=== PATIENT | male | born 1970 | race Caucasian/White ===

== ENCOUNTER → 2023-06-05 | Outpatient (CLI) | payer OTHER, SELFPAY ==
[2023-06-05 12:20] LABS: Hematocrit 46.3 % (40-54); Hemoglobin 15.2 g/dL (13.0-16.5); Mean Corp Hgb Conc 32.8 g/dL (32-36); Mean Corpuscular Hgb 30.6 pg (27.0-32.0); Mean Corpuscular Volume 93.3 fL (80-94); Mean Platelet Vol. 10.1 fl (6.2-12.0); Platelet Count 263 K/mm3 (150-450); RBC Distribution Width CV 13.2 % (11.6-14.6); Red Blood Count 4.96 M/mm3 (4.6-6.2); White Blood Count 4.6 K/mm3 (4.4-11.0)
[2023-06-05 13:19] LABS: Vitamin D,25 Hydroxy 29.7 ng/mL
[2023-06-05 13:58] LABS: ALB/GLOB Ratio 1.1 RATIO (0.9-2.4); AST(SGOT) 11 U/L (15-37); Alanine Aminotransfer ALT/SGPT 29 U/L (16-61); Albumin, Serum 3.8 g/dL (3.2-5.0); Alkaline Phosphatase 60 U/L (45-117); Anion Gap 4 (5-15); BUN 18 mg/dL (7-18); BUN/Creat Ratio 15.4 RATIO (10-20); Calcium,Total 8.7 mg/dL (8.5-10.1); Chloride 107 mmol/L (98-107); Creatinine, Serum 1.17 mg/dL (0.70-1.30); EST Glomerular Filtration Rate 69 mL/min (>60); Est Glom Filt Rate - Afr Amer 84 mL/min (>60); Globulin 3.4 g/dL (2.2-4.2); Glucose 120 mg/dL (74-106); Potassium 4.1 mmol/L (3.5-5.1); Protein, Total 7.2 g/dL (6.4-8.2); Sodium Level 139 mmol/L (136-145); T4 Free Direct 0.94 ng/dL (0.76-1.46); Thyroid Stim Hormone (TSH) 2.21 uIU/mL (0.358-3.74)
== END | disposition home or self-care (01) ==
LOC: BIMLAB 09:50
PROVIDERS: PCP Student in an Organized Health Care Education/Training Program; Referring Provider Student in an Organized Health Care Education/Training Program; Visit Provider Student in an Organized Health Care Education/Training Program
DX: R53.83 Other fatigue (principal); E03.9 Hypothyroidism, unspecified; E55.9 Vitamin D deficiency, unspecified
CPT/HCPCS: 36415; 80053; 82306; 84439; 84443; 85027

== ENCOUNTER → 2023-11-14 | Outpatient (CLI) | payer OTHER, SELFPAY ==
[2023-11-14 15:56] LABS: Vitamin D,25 Hydroxy 30.7 ng/mL
[2023-11-14 15:59] LABS: Hemoglobin A1c 5.2 % (3.8-5.6)
[2023-11-14 16:09] LABS: Hematocrit 45.6 % (40-54); Hemoglobin 15.4 g/dL (13.0-16.5); Mean Corp Hgb Conc 33.8 g/dL (32-36); Mean Corpuscular Hgb 31.4 pg (27.0-32.0); Mean Corpuscular Volume 92.9 fL (80-94); Mean Platelet Vol. 9.8 fl (6.2-12.0); Platelet Count 256 K/mm3 (150-450); RBC Distribution Width CV 12.8 % (11.6-14.6); RBC Distribution Width SD 43.7 fl (35.1-43.9); Red Blood Count 4.91 M/mm3 (4.6-6.2); White Blood Count 4.7 K/mm3 (4.4-11.0)
[2023-11-14 16:10] LABS: ALB/GLOB Ratio 1.1 RATIO (0.9-2.4); AST(SGOT) 23 U/L (15-37); Alanine Aminotransfer ALT/SGPT 41 U/L (16-61); Albumin, Serum 3.8 g/dL (3.2-5.0); Alkaline Phosphatase 62 U/L (45-117); Anion Gap 5 (5-15); BUN 18 mg/dL (7-18); BUN/Creat Ratio 14.9 RATIO (10-20); Calcium,Total 9.1 mg/dL (8.5-10.1); Chloride 108 mmol/L (98-107); Cholesterol 192 mg/dL (200); Creatinine, Serum 1.21 mg/dL (0.70-1.30); EST Glomerular Filtration Rate 67 mL/min (>60); Est Glom Filt Rate - Afr Amer 81 mL/min (>60); Globulin 3.6 g/dL (2.2-4.2); Glucose 104 mg/dL (74-106); High Density Lipoprotein 31 mg/dL; PSA,Total - Annual Screen 0.76 ng/mL (0.00-4.00); Potassium 4.6 mmol/L (3.5-5.1); Protein, Total 7.4 g/dL (6.4-8.2); Sodium Level 140 mmol/L (136-145); T4 Free Direct 0.97 ng/dL (0.76-1.46); Thyroid Stim Hormone (TSH) 2.31 uIU/mL (0.358-3.74); Triglycerides 239 mg/dL; Very Low Density Lipoprotein 48 mg/dL (5-40)
== END | disposition home or self-care (01) ==
LOC: BIMLAB 11:49
PROVIDERS: PCP Student in an Organized Health Care Education/Training Program; Visit Provider Student in an Organized Health Care Education/Training Program
DX: E55.9 Vitamin D deficiency, unspecified (principal); Z13.6 Encounter for screening for cardiovascular disorders; E03.9 Hypothyroidism, unspecified; Z12.5 Encounter for screening for malignant neoplasm of prostate
CPT/HCPCS: 36415; 80053; 80061; 82306; 83036; 84153; 84439; 84443; 85027; G0103

== ENCOUNTER → 2024-02-23 | Outpatient (CLI) | payer OTHER, SELFPAY | END | disposition home or self-care (01) | LOC: LABSPEC 10:53 | PROVIDERS: PCP Student in an Organized Health Care Education/Training Program; Referring Provider Nurse Practitioner; Visit Provider Nurse Practitioner | DX: H01.003 Unspecified blepharitis right eye, unspecified eyelid (principal) | CPT/HCPCS: 87070; 87075; 87077; 87205 ==

== ENCOUNTER → 2024-07-15 | Outpatient (CLI) | payer OTHER, SELFPAY ==
[2024-07-15 12:07] LABS: Hematocrit 45.5 % (40-54); Hemoglobin 15.3 g/dL (13.0-16.5); Mean Corp Hgb Conc 33.6 g/dL (32-36); Mean Corpuscular Hgb 30.5 pg (27.0-32.0); Mean Corpuscular Volume 90.8 fL (80-94); Mean Platelet Vol. 10.1 fl (6.2-12.0); Platelet Count 249 K/mm3 (150-450); RBC Distribution Width CV 12.7 % (11.6-14.6); RBC Distribution Width SD 41.5 fl (35.1-43.9); Red Blood Count 5.01 M/mm3 (4.6-6.2); White Blood Count 5.9 K/mm3 (4.4-11.0)
[2024-07-15 12:55] LABS: ALB/GLOB Ratio 1.1 RATIO (0.9-2.4); AST(SGOT) 22 U/L (15-37); Alanine Aminotransfer ALT/SGPT 32 U/L (16-61); Albumin, Serum 3.7 g/dL (3.2-5.0); Alkaline Phosphatase 62 U/L (45-117); Anion Gap 4 (5-15); BUN 13 mg/dL (7-18); BUN/Creat Ratio 11.7 RATIO (10-20); Calcium,Total 8.7 mg/dL (8.5-10.1); Chloride 108 mmol/L (98-107); Creatinine, Serum 1.11 mg/dL (0.70-1.30); EST Glomerular Filtration Rate 73 mL/min (>60); Est Glom Filt Rate - Afr Amer 89 mL/min (>60); Globulin 3.5 g/dL (2.2-4.2); Glucose 117 mg/dL (74-106); Potassium 4.3 mmol/L (3.5-5.1); Protein, Total 7.2 g/dL (6.4-8.2); Sodium Level 140 mmol/L (136-145)
== END | disposition home or self-care (01) ==
LOC: BIMLAB 09:25
PROVIDERS: PCP Student in an Organized Health Care Education/Training Program; Referring Provider Nurse Practitioner Primary Care; Visit Provider Nurse Practitioner Primary Care
DX: Z01.818 Encounter for other preprocedural examination (principal)
CPT/HCPCS: 36415; 80053; 85027

== ENCOUNTER 2024-07-30 08:05 | Day surgery (SDC) | payer OTHER, SELFPAY ==
[2024-07-30] VITALS (9 sets, daily range): BP systolic 120–134; BP diastolic 89–95; PULSE 62–75; RESP 16–20; TEMP 36.4–36.6; O2SAT 94–99; BMI 31.9
--- NOTE | 2024-07-30 | MASS_PTH ---
PATIENT: NICHOLE MARRERO LOC: [facility] [place] U#:[id number] AGE/SX: 53/M ROOM: RE07/30/[address]: Dr. Isamar Grajeda MD : 1970 BED: DIS: 07/30/2024 SPEC #: [id number] RECD: 07/30/24 13:06 STATUS: LB REBimal #: [id number] VERO: 07/30/24 00:[address]: Isamar Grajeda DEPT: SURGICAL PATHOLOGY RECD BY: Chaitanya Leary ENTERED: 07/30/24 13:06 SP TYPE: Mass OTHR DR: Dr. Lucio Conte, DO Tissues: Arm, NOS Procedures: Surgery Specimen Level IV HEADER OPERATION: Excision subcutaneous mass left upper arm PRE-OP DIAGNOSIS: Neoplasm of uncertain behavior of connective and other soft tissue TISSUE SUBMITTED: Left upper arm mass MICROSCOPIC DIAGNOSIS Left upper arm mass, excision: Inflamed trichilemmal cyst with focal calcification. Detached pieces of mature adipose tissue, no pathologic diagnosis. 08/02/24 MICROSCOPIC DESCRIPTION Slides are reviewed. GROSS DESCRIPTION Received in fixative is one container labeled with the patient's name and designated Left upper arm mass. The specimen consists of a piece of skin with underlying tissue. Skin piece measures 2.2 x 1.0 x 1.5cm. The underlying tissue piece measures 1.5 x 1.5 x 1.5cm. It is inked and serially sectioned reveal a cyst filled with douglass-yellow sebum like material. Also present in the container are multiple fragments of yellow adipose tissue measuring in aggregate 2.5 x 2.0 x 0.3cm. Chemical Compounder Helper sections are submitted in two cassettes as follows: 1- detached fragment of adipose tissue, entirely submitted, 2- skin with underlying tissue. 07/30/2024 TC:5 CPT:72751
--- NOTE | 2024-07-30 08:45 | PCM.HP.BLA ---
History and Physical Date of Admission: 07/30/24 The patient is examined and there are no changes to the H&P dated 07/14/2024. He presents for excision of a subcutaneous mass of the left upper arm. Informed consent was obtained. He is marked in the preop holding area prior to surgery. Assessment & Plan Assessment/Plan (1) Neoplasm of uncertain behavior of connective and other soft tissue: PLAN: Plan For excision subcutaneous mass left upper arm
[2024-07-30] MEDS: 0.9% Normal Saline (1000mL) 1,000 ML 15 ML IV (08:52)
--- NOTE | 2024-07-30 09:04 | PCM.PRE.AN2 ---
ASA Classification* ASA Classification ASA Classification: 2 Assessment & Plan Anesthesia* Anesthesia Assessment Anesthesia Assessment: Discussed sedation and/or anesthesia options, risks, benefits, and alternatives with patient/parents/legal guardian/POA. Questions invited. The patient/parents/legal guardian/POA seems to understand and agrees to proceed with anesthesia plan. Reviewed the physical assessment, medical history, allergy history and patient home medications list prior to surgery/procedure/anesthetic and documented any changes. Performed airway and anesthesia risk assessments. Anesthesia Type Anesthesia Type: General Anesthesia Focused Assessment* Temperature: 97.5 F Pulse Rate: 62 Blood Pressure: 132/92 Respiratory Rate: 20 Pulse Ox: 97 Airway Assessment Mouth opens: >3 cm Mallampati Score: II Focused Labs Anesthesia Preop lab: CBC WBC 5.9 K/mm3 (4.4-11.0) 07/15/24 09:30 RBC 5.01 M/mm3 (4.6-6.2) 07/15/24 09:30 Hgb 15.3 g/dL (13.0-16.5) 07/15/24 09:30 Hct 45.5 % (40-54) 07/15/24 09:30 Plt Count 249 K/mm3 (150-450) 07/15/24 09:30 CHEMISTRY Potassium 4.3 mmol/L (3.5-5.1) 07/15/24 09:30 Sodium 140 mmol/L (136-145) 07/15/24 09:30 BUN 13 mg/dL (7-18) 07/15/24 09:30 Creatinine 1.11 mg/dL (0.70-1.30) 07/15/24 09:30 Glucose 117 mg/dL (74-106) H 07/15/24 09:30 TSH 2.31 uIU/mL (0.358-3.74) 11/14/23 11:55 COAG Pre-Assessment Diagnosis/Proposed Procedure Planned Operative Procedure(s): (L) Excision subcutaneous mass left upper arm Anesthesia History Anesthesia History - television repairer: Anesthesia History - television repairer Hx Hospitalization No 07/21/24 10:16 Any Problems With Anesthesia Yes: PT STATES HARD TO 07/21/24 10:16 SEDATE - WAKES UP DURING PROCEDURES Cholinesterase deficiency No 07/21/24 10:16 You/Your Family Experience No 07/21/24 10:16 fever (hyperthermia) with Relationship Recent Exposure to Contagious No 07/30/24 08:33 Disease Does patient have nerve No 07/21/24 10:16 stimulator Patient instructed to have device shut off --Does patient have Pacemaker No 07/30/24 08:33 or ICD? When Was Last Pacemaker Check QUESTION #4 FULL TEXT: You/Your Family Experience fever (hyperthermia) with Anesthesia Last Oral Intake Last Oral intake: Last Oral Intake NPO since 23:30 07/30/24 08:33 Meds taken in AM with sips of No 07/30/24 08:33 water? Meds patient instructed to take am of surgery PONV PONV - television repairer: PONV - television repairer Female No 07/21/24 10:16 HX of Motion Sickness No 07/21/24 10:16 HX of N/V After Surgery No 07/21/24 10:16 Non-Smoker Yes 07/21/24 10:16 Duration of Surgery greater No 07/21/24 10:16 than 60 minutes Number of Risk Factors 1 07/21/24 10:16 PONV Score Low Risk 07/21/24 10:16 Height & Weight Height & Weight: Anesthesia: Height & Weight Height 6 ft 4 in 07/30/24 08:33 Weight: 119.1 kg 07/30/24 08:33 Body Mass Index (BMI) 31.9 07/30/24 08:33 Respiratory Assessment Respiratory Assessment - television repairer: Respiratory Tract Infection Hx - television repairer Hx Respiratory Tract Infection Yes: 06/30/24 - COLD 07/21/24 10:16 STOP Sleep Apnea STOP Sleep Apnea - television repairer: STOP Sleep Apnea - television repairer Hx Hypertension No 07/21/24 10:16 Hx Sleep Apnea No 07/21/24 10:16 CPAP BIPAP Do you snore loudly (louder No 07/21/24 10:16 than talking or can be heard Do you often feel tired/ No 07/21/24 10:16 fatigued/ sleepy during daytime? Has anyone observed you stop No 07/21/24 10:16 breathing during sleep? STOP Results Negative 07/21/24 10:16 QUESTION #5 FULL TEXT : Do you snore loudly (louder than talking or can be heard through closed doors)? Tobacco Use History Tobacco Use History - television repairer: Tobacco Use History - television repairer Tobacco Use Smoking Status Never smoker 07/21/24 10:16 Hx Tobacco Use No 07/21/24 10:16 Years Smoking Packs Smoked per Day Smoking Cessation Date was within the last 15 years Hx Smoking Cessation Date Hx Smoking Cessation Counseling Hematologic Medial History Hematologic Hx - television repairer: Hematologic Medical Hx - insurance biller Hx of Blood Transfusion No 07/21/24 10:16 Hx of Transfusion in last 3 No 07/21/24 10:16 Months Date of Last Transfusion (if within last 3 months) Ever experience any problems No 07/21/24 10:16 with transfusion(s)? Specify any problems Hx of Preganancy in last 3 N/A 07/21/24 10:16 Months Nurse Filling Out Transfusion NBUCHER 07/21/24 10:16 & Questions: Date: 07/21/24 07/21/24 10:16 Time: 10:19 07/21/24 10:16 Patient unable to answer at this time (ie. confused, unrespo /Reproduction History /Reproductive History - television repairer: /Reproductive Hx- television repairer Hx Now No 07/21/24 10:16 Gestational Age (in weeks): EDC: Hx Hx Para Hx Section SAB No 07/21/24 10:16 Active Medications Active Medications: Current Medications Generic Name Dose Route Start Last Admin Trade Name Freq PRN Reason Stop Dose Admin Cefazolin Sodium 2 gm/ N/A 20 mls @ 400 mls/hr 07/30/24 09:30 IV 07/30/24 09:32 PREOP ONE Sodium Chloride 1,000 mls @ 15 mls/hr 07/30/24 08:25 07/30/24 08:52 IV 08/04/24 21:44 15 mls/hr .Q48H MICKEY Administration Protocol PFS Medical History Wears glasses Cancer Thyroid disease Arthritis Heartburn Gastric reflux Non-smoker History of melanoma History of skin cancer History of frequent headaches History of back problems History of environmental allergies Acute conjunctivitis, left eye GERD (gastroesophageal reflux disease) Hypothyroidism Home Medications ?Medication ?Instructions ?Recorded ?Last Taken ?Type docusate sodium 100 mg capsule 100 mg PO QDAY 11/14/23 07/29/24 History levothyroxine 50 mcg tablet 50 mcg PO QDAY 11/14/23 07/29/24 History pantoprazole 40 mg tablet,delayed 40 mg PO QDAY 11/14/23 07/29/24 History release tamsulosin 0.4 mg capsule 0.4 mg PO QDAY 11/14/23 07/29/24 History fluticasone propionate 50 1 spray intranasal DAILY PRN nasal 07/21/24 Unknown History mcg/actuation nasal congestion spray,suspension (24 Hour Allergy Relief) Allergy/AdvReac Type Severity Reaction Status Date / Time No Known Allergies Allergy Verified 07/30/24 08:33 Family History Father Angina at rest Diabetes Heart disease Hypertension High blood cholesterol Grandfather Angina at rest Heart disease Mother Blood clot in vein Sister Diabetes Cancer throat cancer Surgical History History of hand surgery History of shoulder surgery History of nasal surgery Social History Smoking Status: Never smoker alcohol intake: current substance use type: does not use additional social history: pt denies aspirin and denies ibuprofen use, denies vaping, denies marijuana use, denies edibles. Review of Systems (Anesthesia) ROS Narrative System reviewed and no additional complaints, except as documented.
[2024-07-30] MEDS: Cefazolin 2 GM in Syringe IV (09:25)
[2024-07-30] MEDS: Bupiv/Epi 0.25% 30 ML Vial (09:48)
--- NOTE | 2024-07-30 10:33 | EX.PCM.DISCH ---
Discharge Instructions Dressing / Incision Additional Dressing/Incision Instructions:: Keep your left arm elevated on pillows when sitting to reduce bruising and swelling. Try to reduce activity of the left arm. Leave the dressing in place until seen in the office. May shower over the dressing but do not scrub. Take the oral antibiotic (Keflex) 2 times a day until finished. Tylenol or ibuprofen as needed for pain. Follow Up Care Please Follow Up With: Isamar Grajeda MD When: In 1 week Test Results: Test results from this visit will be discussed in further detail at your follow-up appointment, if applicable. Discharge Plan Admission Attending Provider: Isamar Grajeda Primary Care Provider: Lucio Conte Instructions Print Language: Ugandan Discharge Orders/Prescriptions Prescriptions: New cephalexin 500 mg capsule 500 mg PO BID 7 Days Qty: 14 0RF No Action pantoprazole 40 mg tablet,delayed release (DR/EC) 40 mg PO QDAY levothyroxine 50 mcg tablet 50 mcg PO QDAY tamsulosin 0.4 mg capsule 0.4 mg PO QDAY docusate sodium 100 mg capsule 100 mg PO QDAY fluticasone propionate [24 Hour Allergy Relief] 50 mcg/actuation spray,suspension 1 spray intranasal DAILY PRN (Reason: nasal congestion) Rx Instructions: administer into each nostril Referrals / Follow Up: Lucio Conte DO [Primary Care Provider] - Disposition Disposition (needs filled in before D/C Order can be placed): Home, Self Care
--- NOTE | 2024-07-30 10:36 | PCM.OPRPT ---
Problems Associated Problem List Diagnoses (1) Neoplasm of uncertain behavior of connective and other soft tissue: Operative Report (Standard) Operative Information Date of Procedure: 07/30/24 Pre-Operative Diagnosis: Subcutaneous mass left upper arm Post-Operative Diagnosis: Same Surgery/Procedure Performed: Excision subcutaneous mass left upper arm (4.0 cm) candy bar attendant: Yes Tree Surgeon: Damir Buenrostro Tasks completed by religious assistant: Retracting Type of Anesthesia: General RN Documented Start/Stop Times: Operation Date: 07/30/24 09:30 Case Time Into Pre-Op 07/30/24 08:23 Anesthesia Start 07/30/24 09:18 Into Room 07/30/24 09:18 Out of Pre-Op 07/30/24 09:30 Procedure Start 07/30/24 09:51 Procedure End 07/30/24 10:30 Procedure Start Time: 09:51 Procedure Stop Time: 10:30 Select all DRAINS/GRAFTS/IMPLANTS that apply: None Estimated Blood Loss: Minimal Specimen collected: Yes Description of specimen(s) removed: Subcutaneous mass left upper arm Description of surgery: The patient presents with a multiyear history of a subcutaneous mass of the left upper arm. He presents for excision of the mass with submission for pathologic evaluation. Informed consent was obtained. He is marked in the preop holding area prior to surgery. The patient is brought to the operating room and placed under general anesthesia in the supine position. The left upper arm is prepped and draped in the usual sterile fashion. Quarter percent Marcaine with epinephrine is used for local anesthetic. Following this, an elliptical incision is made over the apex of the mass and carried down through the subcutaneous tissue. The mass is then removed with careful dissection staying in a subcutaneous fat plane. In this way the mass is totally enucleated and removed. The wound is checked for residual neoplasm. Hemostasis is controlled with cautery. The wound is then closed in layers using a 3-0 Vicryl suture in a [id number] to approximate deep subcutaneous tissue. Skin and subcutaneous tissue were further approximated with a STRATAFIX suture. The skin is closed with a subcuticular closure. Dermabond and Steri-Strips along with a Tegaderm are placed on the site. He tolerated the procedure well was taken to the recovery area in an awakening in stable condition. Needle and sponge counts are correct. Surgical Findings: Subcutaneous mass of upper arm Complications Complications: No Admit VTE Documentation VTE Mechan Device Prophylaxis: SCD's
--- NOTE | 2024-07-30 10:41 | PCM.POST.ANE ---
Anesthesia: Postop Eval I Current Vital Signs Temperature: 97.8 F Pulse Rate: 62 Blood Pressure: 134/95 Respiratory Rate: 16 Pulse Ox: 98 Oxygen Delivery Method: Room Air Assessment Airway patent: Yes Spontaneous unlabored respirations: Yes Mental status: Awake and Calm nausea: No Vomiting: No Anesthesia Complication: No Fluid Hydration Crystalloid volume administer (ml): 500 Total IV fluid infused: 500 Progress Note Anesthesia document: Postop Eval 1 completed: Yes
--- NOTE | 2024-07-30 12:12 | POSTOPAN2_ITS ---
Anesthesia Postop Eval I Sum Postop Eval Completion status Anesthesia document: Postop Eval 1 completed: Yes Anesthesia Postop Eval I Summary Anesthesia Postop Eval I Summary: Anesthesia Postop Eval I: Assessment Summary Airway patent Yes 07/30/24 10:42 ELIGIBILITY COUNSELOR.[email or web address] Spontaneous unlabored Yes 07/30/24 10:42 ELIGIBILITY COUNSELOR.CLAU respirations Mental status Awake,Calm 07/30/24 10:42 ELIGIBILITY COUNSELOR.BRIELLEOBLea nausea No 07/30/24 10:42 ELIGIBILITY COUNSELOR.BRIELLEOBLea Vomiting No 07/30/24 10:42 ELIGIBILITY COUNSELOR.CLAU Anesthesia Postop Eval I: Fluid Summary Crystalloid volume administer 500 07/30/24 10:42 ELIGIBILITY COUNSELOR.[email or web address] (ml) Colloids volume administered ( ml) Blood Product volume administered (ml) Total IV fluid infused 500 07/30/24 10:42 ELIGIBILITY COUNSELOR.CLAU Anesthesia Postop Eval I: Summary Notes Anesthesia Complication No 07/30/24 10:42 ELIGIBILITY COUNSELOR.CLAU Anesthesia Complication Comment: Post-operative progress note Anesthesia: Postop Eval II Evaluation Mental status: Awake Pain Level: 0 nausea: No Vomiting: No
--- NOTE | 2024-07-30 12:12 | PCM.POSTANE2 ---
Anesthesia Postop Eval I Sum Postop Eval Completion status Anesthesia document: Postop Eval 1 completed: Yes Anesthesia Postop Eval I Summary Anesthesia Postop Eval I Summary: Anesthesia Postop Eval I: Assessment Summary Airway patent Yes 07/30/24 10:42 DIRECTOR [email or web address].[email or web address] Spontaneous unlabored Yes 07/30/24 10:42 DIRECTOR [email or web address].CLAU respirations Mental status Awake,Calm 07/30/24 10:42 DIRECTOR INDUSTRIAL.BRIELLEOBLea nausea No 07/30/24 10:42 DIRECTOR INDUSTRIAL.BRIELLEOBLea Vomiting No 07/30/24 10:42 DIRECTOR INDUSTRIAL.CLAU Anesthesia Postop Eval I: Fluid Summary Crystalloid volume administer 500 07/30/24 10:42 DIRECTOR INDUSTRIAL.SKOBY (ml) Colloids volume administered ( ml) Blood Product volume administered (ml) Total IV fluid infused 500 07/30/24 10:42 DIRECTOR INDUSTRIAL.CLAU Anesthesia Postop Eval I: Summary Notes Anesthesia Complication No 07/30/24 10:42 DIRECTOR [email or web address].CLAU Anesthesia Complication Comment: Post-operative progress note Anesthesia: Postop Eval II Evaluation Mental status: Awake Pain Level: 0 nausea: No Vomiting: No
== END 2024-07-30 12:00 | disposition home or self-care (01) ==
LOC: SDC 08:07 → AC 08:10
PROVIDERS: PCP Student in an Organized Health Care Education/Training Program; Referring Provider Plastic Surgery; Visit Provider Plastic Surgery
PROC: (CPT 24071; principal; 2024-07-30 09:15)
DX: L72.12 Trichodermal cyst (principal); R22.32 Localized swelling, mass and lump, left upper limb; K21.9 Gastro-esophageal reflux disease without esophagitis; Z79.899 Other long term (current) drug therapy
CPT/HCPCS: 24071; 00400; 88305; J2405

== ENCOUNTER → 2024-08-10 | Outpatient (CLI) | payer OTHER, SELFPAY ==
--- NOTE | 2024-08-10 07:22 | CT_ITS ---
STUDY: CT CHEST WITHOUT CONTRAST REASON FOR EXAM: Male, 53 years old. Hyperlipidemia, unspecified RADIATION DOSAGE (If Supplied By Facility): CTDIvol = ( 12.19 ) mGy, DLP = ( 219.42 ) mGycm TECHNIQUE: Transaxial imaging was performed without the administration of intravenous contrast material. Cardiac over read examination. Individualized dose optimization techniques were used for this CT. COMPARISON: No relevant priors. FINDINGS: CHEST The lungs are normal. There is no demonstrated pleural abnormality. There are calcifications of the coronary arteries. There are small lymph nodes within the mediastinum, which are normal in size and morphology most compatible with reactive lymph hyperplasia. Normal hilar regions. Normal unenhanced pulmonary arteries. Normal aorta arch and descending thoracic aorta. There are degenerative changes of the thoracic spine. Small hiatal hernia. CT/Limited Chest CT Cardiac Only IMPRESSION: Coronary artery calcification. Electronically Signed: Tej Barrera MD at 14:59 EST ,
--- NOTE | 2024-08-10 08:39 | CA.SCORE ---
Calcium Scoring Date of Study:: 08/10/24 Indications Indications: Hyperlipidemia Coronary Calcium Scoring: High-resolution Computed Tomographic imaging of the chest was performed on [08/10/2024], with particular attention paid to the coronary arteries. Images from the examination were analyzed for the presence and extent of coronary artery calcification , using coronary calcium quantification software. The patient tolerated the procedure well and there were no complications. The results of the coronary calcification analysis are provided below. Findings Coronary Artery Left Main (LM): 0 Left Anterior Descending (LAD): 41 Left Circumflex (LCX): 18 Right Coronary Artery (RCA): 0 Total Agatston Score: 59 Percentile Rankin-75th percentile Calcium Scoring Interpretation: Different methods to categorize the overall amount of coronary plaque. Overall amount CAC SIS Visual of coronary plaque P1 Mild -100 <2 1-2 vessels with mild amount of plaque P2 Moderate 101-300 3-4 1-2 vessels with moderate amount, 3 vessels with mild amount of plaque P3 Severe 301-999 5-7 3 vessels with moderate amount, 1 vessel with severe amount of plaque P4 Extensive >1000 >8 2-3 vessels with severe amount of plaque Calcium Score: Mild: 1-2 vessels w/mild amount of plaque Conclusion: Mild atherosclerotic plaquing noted.
== END | disposition home or self-care (01) ==
PROVIDERS: PCP Student in an Organized Health Care Education/Training Program; Referring Provider Student in an Organized Health Care Education/Training Program; Visit Provider Student in an Organized Health Care Education/Training Program
DX: E78.5 Hyperlipidemia, unspecified (principal); Z82.49 Family history of ischemic heart disease and other diseases of the circulatory system
CPT/HCPCS: 75571; 76380

== ENCOUNTER → 2025-07-21 | Outpatient (CLI) | payer OTHER, SELFPAY ==
--- NOTE | 2025-07-21 12:59 | RAD_ITS ---
PROCEDURE: SHOULDER MIN 2 VIEWS 07/21/2025 REASON FOR EXAM: PAIN TECHNIQUE: Procedure Code: RADSH Modality: DX Procedure: SHOULDER MIN 2 VIEWS Laterality: Left FINDINGS: No acute fracture or dislocations. Mild degenerative changes of the left shoulder. No acute soft tissue abnormalities. No radiographic foreign body. RAD/Shoulder min 2 Views IMPRESSION: No acute fracture or dislocations. Mild degenerative changes of the left shoul srikanth. Reading Location: [id number]
--- NOTE | 2025-07-21 12:59 | RAD_ITS ---
EXAM: XR Cervical Spine Flexion/Extension Only, 2 or 3 Views CLINICAL INDICATION: PAIN TECHNIQUE: Lateral flexion/extension views of the cervical spine. COMPARISON: No relevant prior studies available. FINDINGS: VERTEBRAE: Unremarkable. No acute fracture. Normal alignment. No instability. DISC SPACES: No acute findings. No significant narrowing. SOFT TISSUES: Unremarkable. RAD/Cerv Spine 2 or 3 Views IMPRESSION: No acute fracture. Reading Location: [id number]
== END | disposition home or self-care (01) ==
LOC: MTRAD 12:57
PROVIDERS: PCP Student in an Organized Health Care Education/Training Program; Referring Provider Student in an Organized Health Care Education/Training Program; Visit Provider Student in an Organized Health Care Education/Training Program
DX: M54.12 Radiculopathy, cervical region (principal); M25.512 Pain in left shoulder
CPT/HCPCS: 72040; 73030